=== PATIENT | male | born 1960 ===

== ENCOUNTER 2023-01-15 08:18 | Day surgery (SDC) | payer OTHER | END 2023-01-15 13:35 | disposition home or self-care (01) | LOC: AMB-ENDOS 08:18 | PROVIDERS: ATTEND Colon & Rectal Surgery | DX: D37.4 Neoplasm of uncertain behavior of colon (principal); K63.5 Polyp of colon; K57.30 Diverticulosis of large intestine without perforation or abscess without bleeding; K64.8 Other hemorrhoids; Z20.822 Contact with and (suspected) exposure to COVID-19; D12.4 Benign neoplasm of descending colon ==

== ENCOUNTER 2023-05-16 08:38 | Day surgery (SDC) | payer OTHER | END 2023-05-16 14:30 | disposition home or self-care (01) | LOC: AMB-ENDOS 08:38 → CIR.AMB 13:45 → AMB-ENDOS 13:45 | PROVIDERS: ATTEND Colon & Rectal Surgery | DX: D12.0 Benign neoplasm of cecum (principal); K63.5 Polyp of colon; K57.30 Diverticulosis of large intestine without perforation or abscess without bleeding; Z20.822 Contact with and (suspected) exposure to COVID-19 ==